=== PATIENT | female | born 1995 | race Caucasian/White ===

== ENCOUNTER 2016-10-22 16:10 | Emergency (ER) | payer MEDICAID, OTHER ==
[2016-10-22 17:11] VITALS: O2SAT 99
--- NOTE | 2016-10-22 18:01 | C.PDOC ---
History Of Present Illness 21 y/o female presents to ED with itchy dry patches to bilateral thighs first noticed yesterday. pt has no fever or chills, denies any new topical substances. Time Seen by Provider: 10/22/16 16:47 Chief Complaint (Nursing): Abnormal Skin Integrity History Per: Patient History/Exam Limitations: no limitations Onset/Duration Of Symptoms: Days (1) Current Symptoms Are (Timing): Still Present Location Of Injury: Right: Thigh, Left: Thigh Quality Of Symptoms: Itching Past Medical History Reviewed: Historical Data, Nursing Documentation, Vital Signs Vital Signs: Last Vital Signs Temp 98.1 F 10/22/16 16:28 Pulse 97 H 10/22/16 16:28 Resp 18 10/22/16 16:28 BP 111/75 10/22/16 16:28 Pulse Ox 99 10/22/16 18:06 - Medical History PMH: Asthma Denies: Chronic Kidney Disease Surgical History: No Surg Hx Family History: States: Unknown Family Hx - Social History Hx Tobacco Use: No Hx Alcohol Use: Yes Hx Substance Use: No - Immunization History Hx Tetanus Toxoid Vaccination: No Hx Influenza Vaccination: No Hx Pneumococcal Vaccination: No Review Of Systems Constitutional: Negative for: Fever, Chills Gastrointestinal: Negative for: Abdominal Pain Genitourinary: Negative for: Dysuria, Frequency Skin: Positive for: Rash, Other (patches to thighs) Neurological: Negative for: Weakness, Numbness Physical Exam - Physical Exam Appears: Non-toxic, No Acute Distress Skin: Normal Color, Warm, Dry, Other (flat patches of top collar maker colored skin on both thighs (per pt, present for last 2 months) with 1 cm scaly brownish patches scattered on both thighs. no underlying erythema, swelling or warmth. ) Neurological/Psych: Normal Speech, Normal Cognition ED Course And Treatment O2 Sat by Pulse Oximetry: 99 Medical Decision Making Medical Decision Making: patches may be fungal, will d/c with lotrimin and f/u med clinic Disposition Counseled Patient/Family Regarding: Diagnosis, Need For Followup, Rx Given - Disposition Referrals: [facility] [Outside] Disposition: HOME/ ROUTINE Disposition Time: 18:05 Condition: STABLE Additional Instructions: Apply lotrimin crem to affected area once a day, Follow up in medical clinic. Prescriptions: Clotrimazole 1% Cream [Lotrimin 1% CREAM] 1 applic TOP DAILY #1 tube Forms: [facility] ([place]), General Discharge Instructions, Work Excuse - Clinical Impression Clinical Impression: Rash and nonspecific skin eruption
[2016-10-22 18:11] VITALS: BP 98/66; PULSE 78; RESP 16; TEMP 98
== END 2016-10-22 18:14 | disposition home or self-care (01) ==
LOC: C.ER 16:10
DX: R21 Rash and other nonspecific skin eruption (principal)